=== PATIENT | female | born 1940 | race Caucasian/White ===

== ENCOUNTER 2016-07-27 14:44 | Inpatient (IN) | payer MEDICARE, BC ==
--- NOTE | ~2016-07-27 | HP ---
History And Physical [place] [id number] [facility] [place]. [address] NAME: CHILO LOPEZ : 38 STATUS : REG ER PAT#: [id number] AGE: 75 ADM/REG DATE : 07/27/16 MR#: [id number] REPORT SERV DATE: 07/27/16 DICTATED BY: INDIO CORBETT DATE: 07/27/16 REPORT STATUS : Draft TRANSCRIBED BY: MODEmerson DATE: 07/27/16 DATE OF ADMISSION: 07/27/2016 HISTORY OF PRESENT ILLNESS: The patient is a very pleasant 75-year-old female who is a resident of [facility] on [facility]. She reported that more than seven days ago she developed cough and she was feeling very weak for the last seven days and cough still continues and she is unable to sleep at night. It is nonproductive. She was having increased weakness and dehydration and that is why she presented to [facility]. She denies any chest pain. No shortness of breath. No abdominal pain. No fever. She was afebrile since her cough symptoms started. All 14-point review of systems done and all are negative except what is stated in the history of present illness. PAST MEDICAL HISTORY: Known for history of chronic ileostomy since 1969 for ulcerative colitis, now with short bowel syndrome. She told me that she comes [facility] and gets IV fluids twice a week. History of bipolar disorder, questionable history of early onset Alzheimer's dementia, anemia, osteoarthritis, chronic kidney disease, gout, cataracts, history of SIADH, mild diabetes, some hearing problems, and decreased appetite. PAST SURGICAL HISTORY: Includes ileostomy for ulcerative colitis and bilateral cataract surgery. SOCIAL HISTORY: She is a former smoker, currently does not smoke, used to smoke one pack per day. No excessive alcohol. She drinks occasionally. No recreational drug use. She is retired. She lives at the [facility]. FAMILY HISTORY: Negative for cancer. Positive for COPD and coronary artery disease. Positive for hypertension and diabetes. ALLERGIES: SHE IS ALLERGIC TO PENICILLIN AND SULFA. HOME MEDICATIONS: Include allopurinol 100 mg a day, Questran 4 g twice a day, Depakote ER 500 p.o. b.i.d., Flonase nasal spray 1 spray daily, folic acid 1 mg daily, and Xyzal 5 mg daily. She was given Levaquin starting 07/26/2016. She cannot remember for which reason, most likely for cough. Magnesium oxide 200 mg twice a day, midodrine 2.5 mg three times a day, multivitamins daily, Protonix 40 mg b.i.d., phosphorus 250 twice a day, potassium chloride 10 mEq p.o. twice a day, Seroquel 200 mg at bedtime, simvastatin 20 mg daily, sodium bicarbonate 1300 twice a day, sodium chloride 2 g p.o. b.i.d., Carafate 1 g p.o. before meals, and ferrous sulfate daily. REVIEW OF SYSTEMS: A 14-point review of systems done and negative except what is stated in the history of present illness. PHYSICAL EXAMINATION: GENERAL: This female, not in acute distress, resting quietly. VITAL SIGNS: Blood pressure 120/64, temperature 98.2, heart rate 96, respiratory rate 18, History And Physical [address] [address] NAME: CHILO LOPEZ : 38 STATUS : REG ER PAT#: [id number] AGE: 75 ADM/REG DATE : 07/27/16 MR#: [id number] REPORT SERV DATE: 07/27/16 DICTATED BY: INDIO CORBETT DATE: 07/27/16 REPORT STATUS : Draft TRANSCRIBED BY: AUSTEN DATE: 07/27/16 and oxygen saturation 95% on room air. HEENT: Head atraumatic, normocephalic. Conjunctivae clear. Pupils are equal and reactive to light and accommodation. Extraocular muscles are intact. NECK: Supple. Trachea is midline. No supraclavicular or cervical lymphadenopathy. LUNGS: Diminished breath sounds bilaterally. Decreased respiratory effort. CARDIOVASCULAR SYSTEM: Regular rate and rhythm. Point of maximal impulse not displaced. ABDOMEN: Soft, not tender to palpation in all abdominal quadrants. Ileostomy present. EXTREMITIES: No clubbing, cyanosis, or edema. SKIN: Normal color, decreased turgor. PSYCHIATRIC: Normal mood and affect. NEUROLOGIC: Awake, alert, and oriented in time, place, and person. Muscle strength is 5/5 bilaterally on upper and lower extremities. LABORATORY RESULTS: Sodium 135, potassium 4.4, chloride 97, carbon dioxide 24, BUN 29, creatinine 2.82, blood sugar is 94. Depakene level 41.5. The patient's creatinine on 07/22/2016 was 1.8 and on 07/17/2016 was 1.53, so probably baseline creatinine from 1.5 to 1.8, now it is 2.82. White count 5, hemoglobin 9.1, hematocrit 28.2, platelet count 174. Influenza B positive. Chest x-ray personally reviewed by me. Official Radiology results are pending showing chronic changes, possible COPD. I do not see any acute infiltrate. We will wait for official Radiology report. EKG showed some mild sinus tachycardia with premature atrial complexes, rate of 104, nonspecific ST-T wave changes. ASSESSMENT AND PLAN: This is a 75-year-old female with a past medical history of chronic ileostomy secondary to ulcerative colitis, history of bipolar disorder, mild diabetes, presented with: 1. Acute kidney injury on chronic kidney disease. 2. Influenza symptoms started more than seven days ago, currently having only cough. Influenza B positive. 3. Chronic ileostomy. She gets transfusion. Every two weeks, she gets IV fluid transfusions. 4. DNR status. 5. History of bipolar disorder, stable. We will admit the patient to telemetry bed for acute kidney injury on chronic kidney disease. As I dictated, her baseline creatinine is 1.8. We will start her on IV fluid hydration. 6. For her cough, we will give her Mucinex. We will check official Radiology report also, and I will check procalcitonin level. I will hold on antibiotics right now until procalcitonin comes back and also Radiology report officially will come out. 7. For diabetes, we will put her on insulin sliding scale. 8. Anemia, stable hemoglobin and hematocrit. 9. We will put her on deep venous thrombosis prophylaxis, and my partner will see this patient starting tomorrow morning, and also since her influenza started more than seven days ago, she is not a candidate for Tamiflu anymore especially with this abnormal kidney function and with her not having fever and the only symptom it is just post History And Physical [address] [place]. [address] NAME: CHILO LOPEZ : 38 STATUS : REG ER PAT#: [id number] AGE: 75 ADM/REG DATE : 07/27/16 MR#: [id number] REPORT SERV DATE: 07/27/16 DICTATED BY: INDIO CORBETT DATE: 07/27/16 REPORT STATUS : Draft TRANSCRIBED BY: AUSTEN DATE: 07/27/16 influenza cough. MG/MODL Indio Corbett M.D. / [id number] CC: Dr. Schuster
--- NOTE | ~2016-07-27 | CN ---
Consultation Report [facility] [address] [place]. [address] NAME: CHILO LOPEZ : 38 STATUS : ADM IN PAT#: [id number] AGE: 75 ADM/REG DATE : 07/27/16 MR#: [id number] REPORT SERV DATE: 07/28/16 DICTATED BY: NELI POPE DATE: 07/28/16 REPORT STATUS : Draft TRANSCRIBED BY: MODL DATE: 07/28/16 CONSULTATION DATE OF CONSULTATION: REASON FOR CONSULTATION: Acute kidney injury on chronic kidney disease. HISTORY OF PRESENT ILLNESS: This is a very pleasant 75-year-old female, who follows with Dr. Neli Pope in our office. Baseline creatinine appears to be 1.9 to 2.3 and she requires recurrent infusion of IV fluids with known history of chronic kidney disease stage 3 to stage 4, HBP, hyponatremia, diabetes mellitus type 2, ulcerative colitis with ileostomy in 1959, gout, dementia with bipolar disorder, urinary retention, cholelithiasis, and anemia. The patient states that she has recently been doing well and continues to live at an assisted living facility. Over the previous 48 hours prior to admission here, she began to feel worsening malaise and fatigue without chest pain, nausea, or vomiting and reported here rather for evaluation and was found to be positive for influenza B with acute kidney injury and baseline creatinine as listed above with most recent followup in our office on 03/27/2016 with a stable creatinine at that time. The patient is awake and alert and oriented this morning, in no acute distress. Denies current chest pain. No active nausea, vomiting, or diarrhea. PAST MEDICAL HISTORY: Positive for chronic kidney disease stage 3 to 4, baseline creatinine 1.9 to 2.3; HBP; hyponatremia; SIADH; diabetes mellitus type 2; ulcerative colitis, requiring an ileostomy in 1959 and frequent infusions with IV fluids. History is also positive for gout, dementia, bipolar disorder, urinary retention, cholelithiasis, and anemia. REVIEW OF SYSTEMS: Completed, please see HPI for pertinent details. SOCIAL HISTORY: No ETOH. No illicit drugs. No tobacco. Lives locally in assisted living with recent medical history as listed above. ALLERGIES: LISTS ALLERGIES TO PENICILLIN AND SULFA. ACTIVE MEDICATIONS: Allopurinol 100 mg p.o. daily, Questran 4 g p.o. b.i.d., Depakote 500 mg p.o. b.i.d., ferrous sulfate 300 mg p.o. daily, folic acid 600 mg p.o. daily, guaifenesin 600 mg p.o. b.i.d., heparin 5000 units via sliding scale, NovoLog sliding scale level 1, Claritin 10 mg daily, Mag-Ox 200 mg p.o. daily b.i.d., ProAmatine 2.5 mg p.o. t.i.d., Theragran tab multivitamin one daily, Protonix 40 mg p.o. a.c. b.s., phosphorus 250 mg p.o. b.i.d., potassium chloride 10 mEq p.o. b.i.d., Seroquel at 200 mg p.o. q.h.s., Zocor 20 mg daily, sodium bicarb 1300 mg daily, sodium chloride infusion rate at 100 mL an hour, and Carafate 1 g p.o. daily. She also has antiemetics, anti-pain and she is on electrolyte protocol. Consultation Report [address] [place]. [address] NAME: CHILO LOPEZ : 38 STATUS : ADM IN [facility]#: [id number] AGE: 75 ADM/REG DATE : 07/27/16 MR#: [id number] REPORT SERV DATE: 07/28/16 DICTATED BY: NELI POPE DATE: 07/28/16 REPORT STATUS : Draft TRANSCRIBED BY: AUSTEN DATE: 07/28/16 PHYSICAL EXAMINATION: VITAL SIGNS: Blood pressure 120/58, respiratory rate at 20, heart rate at 106 beats per minute, temperature 98.6. GENERAL: She is alert and oriented x3, in no acute distress. HEENT: Normocephalic and atraumatic. Normal ocular movements. No scleral icterus or conjunctival pallor is appreciated. NECK: Supple without thyromegaly. No JVD. No mass. CHEST: Shows positive S1 and S2. No rubs, no gallops. LUNGS: Diminished, but clear to auscultation throughout with normal expansion and effort bilaterally. GI: Shows positive bowel sounds in all four quadrants. No appreciable mass or tenderness. Ileostomy is present. : Deferred. EXTREMITIES: Show positive pulses. No clubbing, cyanosis, or edema. NEUROLOGIC: She appears to be grossly intact and nonfocal. She has appropriate mood and affect. SKIN: Warm dry, and intact to visualized surfaces. No rash, lesions, or ecchymosis. PERTINENT LABORATORIES AND IMAGING: Sodium 138, potassium 3.6, chloride 103, CO2 of 25, BUN 22, creatinine 2.24, reflected GFR at 20 mL/minute, glucose of 109, calcium 6.3, magnesium 1.4. Folate is pending. B12 of 168. WBC at 3.9, RBC 3.0, hemoglobin 8.3, hematocrit 25.3, platelets at 148. IMPRESSION AND PLAN: Chronic kidney disease stage 3 to stage 4. Baseline creatinine at 1.9 to 2.3, now at 2.24 which is within her baseline. The patient does have ileostomy and requires chronic infusions and has had some level of difficulty with SIADH and hyponatremia in prior admissions. Currently, her sodium is stable at 1.3. She does have electrolyte abnormalities with her magnesium at 1.4, her calcium is at 6.3 with no ionized calcium available nor albumin. Continue her IV fluids. Check her ionized calcium, treat calcium levels based off her ionized. Treat her magnesium. With previous difficulty with urinary retention, check postvoid residual and place Garcia catheter if clinically warranted. Follow closely with supportive care. The patient will likely need inpatient physical therapy evaluation. Defer B12 and folate to primary care team and modify treatment plan based on clinical presentation of the patient, laboratory results, and further consultation with Renal attending. We appreciate consultation, we are glad to follow. DICTATED BY: Kev Cleveland NP JR/AUSTEN Neli Consultation Report [address] [place] [facility] [address] NAME: CHILO LOPEZ : 38 STATUS : ADM IN PAT#: [id number] AGE: 75 ADM/REG DATE : 07/27/16 MR#: [id number] REPORT SERV DATE: 07/28/16 DICTATED BY: NELI POPE DATE: 07/28/16 REPORT STATUS : Draft TRANSCRIBED BY: SILVIANOL DATE: 07/28/16 Moris Pope / [id number] CC: Lissette Lr M.D.
--- NOTE | ~2016-07-27 | DS ---
Discharge Summary [facility] [address] [place]. [address] NAME: CHILO LOPEZ : 38 STATUS : DIS IN PAT#: [id number] AGE: 75 ADM/REG DATE : 07/27/16 MR#: [id number] REPORT SERV DATE: 08/06/16 DICTATED BY: DATE: REPORT STATUS : Draft TRANSCRIBED BY: MODL DATE: 08/05/16 ADMISSION DATE: 07/27/2016 DISCHARGE DATE: 08/05/2016 The [facility], attending Shantanu Dean M.D. CONSULTANTS: Chester Everett M.D., nephrology-signed off. DISCHARGE DIAGNOSES: 1. Influenza B. 2. Status post bilateral bacterial pneumonia with associated pleural effusion. 3. Status post acute kidney injury on chronic kidney disease, stage 3-4. Baseline creatinine 1.8. 4. Ulcerative colitis with history of colectomy, ileostomy, small bowel syndrome. History of high output ostomy. 5. Diabetes. 6. Chronic anemia. 7. History of gout. 8. History of hyponatremia due to SIADH. 9. History of dementia. 10.History of bipolar disorder. 11.History of urinary retention. 12.History of cholelithiasis. 13.History of anemia. 14.B12 deficiency-initiated on replacement. IMAGING AND DIAGNOSTICS: 1. Portable chest x-ray, July 27 shows no acute process. 2. Portable chest x-ray, July 29, diffuse bilateral interstitial infiltrates. 3. CT chest without contrast on July 30, bilateral pleural fluid and adjacent bibasilar atelectasis. Scattered areas of minimal infiltrate and consolidation within both lungs, likely pneumonia. Minimal pericardial fluid. Calcific atherosclerosis with involvement of the coronary arteries. PERTINENT LABS: Creatinine value at admission 2.82, 1.84 at discharge. Liver enzymes normal. B12 of 168. Hemoglobin A1c 5.7. Flu swab, influenza B positive. BNP values between 36 and 325. BRIEF HISTORY: For full details, please see the previously dictated history of present illness by Monisha Cali. This is a 75-year-old female, who lives at [facility] [address] (assisted living). Seven days prior to admission, she developed a cough and weakness. She was noted to have increasing weakness and poor oral intake leading to dehydration and presented to the [facility] Emergency Department. Her creatinine was found to be elevated and her flu swab was positive for influenza B. She was admitted to the Hospitalist Service for further management. Discharge Summary [place] [address] [place]. [address] NAME: CHILO LOPEZ : 38 STATUS : DIS IN PAT#: [id number] AGE: 75 ADM/REG DATE : 07/27/16 MR#: [id number] REPORT SERV DATE: 08/06/16 DICTATED BY: DATE: REPORT STATUS : Draft TRANSCRIBED BY: MODL DATE: 08/05/16 HOSPITAL COURSE: For full details, please see interim discharge summary by Dr. Shantanu Dean on August 04. The patient was treated with Tamiflu for her influenza B, and received a full five days of treatment. Subsequent imaging revealed bilateral bacterial pneumonia and she was treated with Levaquin for seven days total. She was found to have acute kidney injury with an admission creatinine of 2.8 on prior baseline of 1.8. Nephrology followed with conservative management. Her creatinine was brought down to baseline value of 1.8 . Despite medical improvement and resolution of influenza B, bacterial pneumonia, and acute kidney injury, patient remained very physically weak and deconditioned. She requested to be discharged to [facility]. No beds were available on the 04 of August, and she was held overnight until the 05 of August at which 0.1 bed is available and request has been made to [facility] to [facility]. DISCHARGE DISPOSITION: Patient will be discharged to [facility] for additional rehabilitation before she is able to return to assisted living. She has no specific activity restrictions, and her discharge diet should be a diabetic diet for prior comorbidities. DISCHARGE MEDICATIONS: Include: 1. Allopurinol 100 mg p.o. daily. 2. Questran 4 g p.o. twice a day. 3. Depakote 500 mg p.o. twice a day. 4. Flonase one spray in each nostril daily. 5. B12 1000 mcg p.o. daily. 6. Guaifenesin 600 mg p.o. three times a day as needed for cough and congestion. 7. Xyzal 5 mg p.o. at bedtime. 8. Magnesium oxide 200 mg p.o. twice a day. 9. Protonix 40 mg p.o. twice a day. 10.Potassium 10 mEq p.o. twice a day. 11.Seroquel 200 mg p.o. at bedtime-prescription provided. 12.Zocor 20 mg p.o. at bedtime. 13.Sodium bicarbonate 1300 mg p.o. twice a day. 14.Sodium chloride 2 g p.o. twice a day. 15.Sucralfate 1 g p.o. q.a.c. t.i.d. and q.h.s. 16.ProAmatine 2.5 mg p.o. three times a day. 17.DuoNeb 3 mL inhaled every four hours as needed for shortness of breath. 18.Iron sulfate 324 mg p.o. daily. 19.Folic acid 1 mg p.o. daily. 20.Multivitamin with minerals one tablet p.o. daily. 21.Phosphate one tablet p.o. twice a day. 30 minutes was spent in completion of the discharge summary. HANS/AUSTEN Wesley Squires Discharge Summary [address] [address] NAME: CHILO LOPEZ : 38 STATUS : DIS IN PAT#: [id number] AGE: 75 ADM/REG DATE : 07/27/16 MR#: [id number] REPORT SERV DATE: 08/06/16 DICTATED BY: DATE: REPORT STATUS : Draft TRANSCRIBED BY: AUSTEN DATE: 08/05/16 Moris Bunch / [id number] CC: Moris Patel MD
--- NOTE | ~2016-07-27 | IDS ---
Interim Discharge Summary [facility] [address] [place]. [address] NAME: CHILO LOPEZ : 38 STATUS : ADM IN [facility]#: [id number] AGE: 75 ADM/REG DATE : 07/27/16 MR#: [id number] REPORT SERV DATE: 08/04/16 DICTATED BY: MUNIR AYALA DATE: 08/04/16 REPORT STATUS : Draft TRANSCRIBED BY: MODL DATE: 08/04/16 ADMISSION DATE: 07/27/2016 DISCHARGE DATE: CONSULTING PHYSICIAN: Chester Everett M.D. for Renal and they signed off. INTERIM DIAGNOSES: 1. Flu B. 2. Status post bilateral pneumonia with pleural effusion. 3. Status post acute kidney injury, on CKD 3 to 4. 4. Ulcerative colitis with history of colectomy, ileostomy, and small bowel syndrome. 5. Diabetes. 6. Chronic anemia. 7. History of gout. DIAGNOSTIC EXAM: Chest x-ray showing no acute process or no change on admission. Repeat chest x-ray showing diffuse bilateral interstitial edema or infiltrates. CAT scan of the chest showing bilateral pleural fluid and adjacent basilar atelectasis. Scattered areas of minimal infiltrate and consolidation within both lungs, likely pneumonia. Follow up is recommended to confirm clearance since other underlying abnormalities could be obscured. Minimal pericardial fluid, calcific atherosclerosis including involvement of coronary arteries. HOSPITAL COURSE: Please refer to the H and P done by Dr. Cali dated on 07/27/2016. Briefly, this is a 75-year-old female who comes in for weakness. The patient has a history of ileostomy, short bowel syndrome and has chronic kidney disease, has been following up with the Renal people and getting infusion twice a week. I suspect that this is more of electrolytes and fluids as she has been losing a lot from her ileostomy chronically. The patient started having weakness, cough for about one week, and finally presented to the hospital. She was diagnosed to have a flu B and was started on Tamiflu, but later on developed bilateral pneumonia. She was placed on Levaquin. The patient was also found to be in KARMA with a creatinine of 2.82. We got Renal involved and with conservative management, we were able to bring it down to her baseline of 1.84. Renal have signed off and the patient was doing well. However, she remains weak. She really wanted to go to rehab and we are working with [facility] to accept her; however, they do not have a bed today, so once we have a bed available, the patient will be transferred there. She will be followed up by my partner starting tomorrow. WALTER/AUSTEN Munir Ayala M.D. / [id number] Interim Discharge Summary [address] [address] NAME: CHILO LOPEZ : 38 STATUS : ADM IN [facility]#: [id number] AGE: 75 ADM/REG DATE : 07/27/16 MR#: [id number] REPORT SERV DATE: 08/04/16 DICTATED BY: MUNIR AYALA DATE: 08/04/16 REPORT STATUS : Draft TRANSCRIBED BY: AUSTEN DATE: 08/04/16 CC: Moris Holliday MD
[~2016-07-27 14:44] MED LIST: 8 HOUR650 MG PO; ACIDOPHILU1 PO; ARTHRITIS PAIN REL PO; AURALGAN OT; CALMOSEPTINE O2.5 OZ TOP; CENTRUM PO; CIP5 PO; CLEOCIN300 MG PO; DEPAKOT500 PO; DEPAKOTEER PO; DITROXL5 PO; ESTRACE VAG0.1 MG/GM V; FERRETTS325 MG PO; FERROUS SULF324 MG PO; FERROUS SULF325 M1 PO; FERROUS SULFATE 324 PO; FESO4 PO; FLONASE NAS; FOLIC PO; FORTAMET500 MG PO; GLUCPH PO; IRON325 MG PO; JANUVIA100 MG PO; KDUR10 PO; KLOR-CON 1010 MEQ PO; LEVAQUIN750 MG PO; LOP25 PO; MACROBID PO; MAGOX4; MAGOX4 PO; MAPAP PO; MOMUD PO; MULTIVIT/MIN PO; NORCO1 TA1 PO; OXYBUTYNIN CL PO; PERIDEX PO; PHOSPHA 250 OR; PHOSPHA 250 PO; PR25 PO; PREVALITE4 G1 PO; PROAM25 PO; PROBIOTIC PO; PROTONIX PO; QUESLITE PO; QUESTRAN4 GM PO; QUETIAPINE PO; RISAMINE OINTMENT TOP; SB325; SENSIPAR30 M1 PO; SEROQUEL XR200 MG PO; SEROQUEL200 MG PO; SOD CHLORIDE1 G1 PO; SODBICAR10 PO; SODCLTAB; SODCLTAB PO; SUCR PO; T PO; T3 PO; THERA M PLUS PO; THERA-M PO; THERGRANM; THERGRANM PO; TYLENOL ARTH650 MG PO; ULTRAM50 PO; XYZAL5 MG PO; Z100 PO; ZOCOR20 PO; ZOFRAN ODT4 MG PO; ZOFRAN4 PO
[2016-07-27 15:05] LABS: BASOPHILS 0.2 %; BASOPHILS ABSOLUTE 0.01 10/3/uL (0.0-0.16); EOSINOPHILS 0 %; HEMOGLOBIN 9.1 g/dL (12.0-16.0); IMMATURE GRANULOCYTES 0.2 %; IMMATURE GRANULOCYTES ABSOLUTE 0.01 10/3/uL (0.0-0.11); LYMPHOCYTES 22.5 %; LYMPHOCYTES ABSOLUTE 1.13 10/3/uL (0.67-4.30); MEAN CORPUS HGB CONC 32.3 g/dL (32.0-36.0); MEAN CORPUSCULAR HEMOGLOB 27.7 pg (26.0-34.0); MEAN PLATELET VOLUME 9.2 fL (9.2-13.0); MONOCYTES 10.5 %; MONOCYTES ABSOLUTE 0.53 10/3/uL (0.21-1.20); NEUTROPHILS 66.6 %; NEUTROPHILS ABSOLUTE 3.35 10/3/uL (2.02-8.40); PLATELET COUNT 174 10/3/uL (150-400); RBC DISTRIBUTION WIDTH 16.5 % (12.0-16.0); RED CELL COUNT 3.29 10/6/uL (4.0-5.6)
[2016-07-27 15:08] LABS: HEMATOCRIT 28.2 % (36.0-48.0); MANUAL DIFF NO %; MEAN CORPUSCULAR VOLUME 85.7 fL (80-100)
[2016-07-27 15:22] LABS: A/G RATIO 0.5 (0.7-1.9); ALBUMIN 2.5 G/DL (3.5-5.0); BUN (BLOOD UREA NITROGEN) 29 MG/DL (6-23); CHLORIDE, SERUM 97 MMOL/L (96-112); CO2 (CARBON DIOXIDE) 24 MMOL/L (24-34); CREATININE 2.82 MG/DL (0.55-1.02); DEPAKENE (VALPROIC ACID) 41.5 MCG/ML (50.0-100.0); GFR AFRICAN AMERICAN 18 ML/MIN (>=60); GFR NON AFRICAN AMERICAN 16 ML/MIN (>=60); GLOBULIN 5.2 G/DL (2.5-4.1); GLUCOSE, SERUM 94 MG/DL (60-99); POTASSIUM, SERUM 4.4 MMOL/L (3.5-5.3); SGOT(AST) 18 U/L (5-40); SGPT(ALT) 8 U/L (5-65); SODIUM, SERUM 135 MMOL/L (135-148); TOTAL BILIRUBIN 0.2 MG/DL (0-1.2); TOTAL PROTEIN 7.7 G/DL (6.0-8.5)
[2016-07-27 15:23] LABS: ALKALINE PHOSPHATASE 215 U/L (45-117); CALCIUM, SERUM 6.6 MG/DL (8.5-10.4)
[2016-07-27 15:28] LABS: INFLUENZA A SCREEN NEGATIVE (NEGATIVE)
[2016-07-27 15:31] LABS: INFLUENZA B SCREEN POSITIVE (NEGATIVE)
[2016-07-27 23:11] LABS: PROCALCITONIN 0.21 ng/mL (<0.5)
[2016-07-28 00:03] LABS: FOLATE > 100.0 NG/ML (>5.2)
[2016-07-28 08:58] LABS: BASOPHILS 0.3 %; BASOPHILS ABSOLUTE 0.01 10/3/uL (0.0-0.16); EOSINOPHILS 0.3 %; EOSINOPHILS ABSOLUTE 0.01 10/3/uL (0.0-0.53); HEMATOCRIT 25.5 % (36.0-48.0); HEMOGLOBIN 8.3 g/dL (12.0-16.0); LYMPHOCYTES 43.7 %; MEAN CORPUS HGB CONC 32.5 g/dL (32.0-36.0); MEAN CORPUSCULAR HEMOGLOB 27.7 pg (26.0-34.0); MEAN PLATELET VOLUME 9.6 fL (9.2-13.0); MONOCYTES 8.5 %; MONOCYTES ABSOLUTE 0.33 10/3/uL (0.21-1.20); NEUTROPHILS 47.2 %; NEUTROPHILS ABSOLUTE 1.84 10/3/uL (2.02-8.40); PLATELET COUNT 148 10/3/uL (150-400); RBC DISTRIBUTION WIDTH 16.5 % (12.0-16.0); WHITE BLOOD CELLS 3.9 10/3/uL (4.5-10.5)
[2016-07-28 08:59] LABS: MANUAL DIFF NO %
[2016-07-28 09:57] LABS: BUN (BLOOD UREA NITROGEN) 22 MG/DL (6-23); CALCIUM, SERUM 6.3 MG/DL (8.5-10.4); CHLORIDE, SERUM 103 MMOL/L (96-112); CO2 (CARBON DIOXIDE) 25 MMOL/L (24-34); CREATININE 2.24 MG/DL (0.55-1.02); GFR AFRICAN AMERICAN 24 ML/MIN (>=60); GFR NON AFRICAN AMERICAN 20 ML/MIN (>=60); GLUCOSE, SERUM 109 MG/DL (60-99); POTASSIUM, SERUM 3.6 MMOL/L (3.5-5.3); SODIUM, SERUM 138 MMOL/L (135-148)
[2016-07-28 15:10] LABS: FOLATE > 100.0 NG/ML (>5.2)
[2016-07-29 05:14] LABS: ASCORBIC ACID (UR NOT ORDER) 20 (NEG); BILIRUBIN, URINE NEGATIVE (NEG); KETONE, URINE NEGATIVE (NEG); LEUKOCYTE ESTERASE(NOT OR LARGE (NEG); WBC (NOT ORDERED) (RFLEX) 27 (0-5)
[2016-07-29 06:14] LABS: BASOPHILS 0.3 %; BASOPHILS ABSOLUTE 0.01 10/3/uL (0.0-0.16); EOSINOPHILS 0 %; HEMATOCRIT 23.8 % (36.0-48.0); HEMOGLOBIN 7.6 g/dL (12.0-16.0); LYMPHOCYTES 35.2 %; LYMPHOCYTES ABSOLUTE 1.25 10/3/uL (0.67-4.30); MANUAL DIFF NO %; MEAN CORPUS HGB CONC 31.9 g/dL (32.0-36.0); MEAN CORPUSCULAR VOLUME 84.7 fL (80-100); MEAN PLATELET VOLUME 9.4 fL (9.2-13.0); MONOCYTES 8.7 %; MONOCYTES ABSOLUTE 0.31 10/3/uL (0.21-1.20); NEUTROPHILS 55.8 %; NEUTROPHILS ABSOLUTE 1.98 10/3/uL (2.02-8.40); PLATELET COUNT 130 10/3/uL (150-400); RBC DISTRIBUTION WIDTH 16.3 % (12.0-16.0); RED CELL COUNT 2.81 10/6/uL (4.0-5.6); WHITE BLOOD CELLS 3.6 10/3/uL (4.5-10.5)
[2016-07-29 06:32] LABS: ALBUMIN 2.1 G/DL (3.5-5.0); CHLORIDE, SERUM 106 MMOL/L (96-112); CO2 (CARBON DIOXIDE) 25 MMOL/L (24-34); CREATININE 1.83 MG/DL (0.55-1.02); GFR AFRICAN AMERICAN 30 ML/MIN (>=60); GFR NON AFRICAN AMERICAN 26 ML/MIN (>=60); GLUCOSE, SERUM 95 MG/DL (60-99); POTASSIUM, SERUM 3.8 MMOL/L (3.5-5.3); SODIUM, SERUM 141 MMOL/L (135-148)
[2016-07-29 06:33] LABS: BUN (BLOOD UREA NITROGEN) 17 MG/DL (6-23); CALCIUM, SERUM 6.5 MG/DL (8.5-10.4); PHOSPHORUS, SERUM 2.8 MG/DL (2.5-4.5)
[2016-07-30 07:31] LABS: BASOPHILS 0 %; EOSINOPHILS 0.7 %; EOSINOPHILS ABSOLUTE 0.03 10/3/uL (0.0-0.53); IMMATURE GRANULOCYTES 0.2 %; IMMATURE GRANULOCYTES ABSOLUTE 0.01 10/3/uL (0.0-0.11); LYMPHOCYTES 28.4 %; LYMPHOCYTES ABSOLUTE 1.22 10/3/uL (0.67-4.30); MANUAL DIFF NO %; MEAN CORPUSCULAR HEMOGLOB 27.4 pg (26.0-34.0); MEAN CORPUSCULAR VOLUME 85.6 fL (80-100); MEAN PLATELET VOLUME 9.2 fL (9.2-13.0); MONOCYTES 7.7 %; MONOCYTES ABSOLUTE 0.33 10/3/uL (0.21-1.20); PLATELET COUNT 141 10/3/uL (150-400); RBC DISTRIBUTION WIDTH 16.4 % (12.0-16.0); RED CELL COUNT 2.92 10/6/uL (4.0-5.6); WHITE BLOOD CELLS 4.3 10/3/uL (4.5-10.5)
[2016-07-30 07:55] LABS: CHLORIDE, SERUM 107 MMOL/L (96-112); CO2 (CARBON DIOXIDE) 26 MMOL/L (24-34); CREATININE 1.62 MG/DL (0.55-1.02); FREE T4 0.92 NG/DL (0.76-1.46); GFR AFRICAN AMERICAN 35 ML/MIN (>=60); GFR NON AFRICAN AMERICAN 30 ML/MIN (>=60); GLUCOSE, SERUM 89 MG/DL (60-99); POTASSIUM, SERUM 3.9 MMOL/L (3.5-5.3); SODIUM, SERUM 143 MMOL/L (135-148)
[2016-07-30 07:56] LABS: BUN (BLOOD UREA NITROGEN) 12 MG/DL (6-23); CALCIUM, SERUM 6.5 MG/DL (8.5-10.4)
[2016-07-31 10:24] LABS: BUN (BLOOD UREA NITROGEN) 11 MG/DL (6-23); CALCIUM, SERUM 7.1 MG/DL (8.5-10.4); CHLORIDE, SERUM 103 MMOL/L (96-112); CO2 (CARBON DIOXIDE) 25 MMOL/L (24-34); CREATININE 1.85 MG/DL (0.55-1.02); GFR AFRICAN AMERICAN 30 ML/MIN (>=60); GFR NON AFRICAN AMERICAN 26 ML/MIN (>=60); GLUCOSE, SERUM 155 MG/DL (60-99); POTASSIUM, SERUM 4.6 MMOL/L (3.5-5.3); SODIUM, SERUM 140 MMOL/L (135-148)
[2016-08-01 06:05] LABS: BASOPHILS 0 %; EOSINOPHILS 0.5 %; EOSINOPHILS ABSOLUTE 0.03 10/3/uL (0.0-0.53); HEMATOCRIT 25.9 % (36.0-48.0); HEMOGLOBIN 8.2 g/dL (12.0-16.0); IMMATURE GRANULOCYTES 0.2 %; IMMATURE GRANULOCYTES ABSOLUTE 0.01 10/3/uL (0.0-0.11); LYMPHOCYTES 17.1 %; LYMPHOCYTES ABSOLUTE 0.98 10/3/uL (0.67-4.30); MEAN CORPUS HGB CONC 31.7 g/dL (32.0-36.0); MEAN CORPUSCULAR HEMOGLOB 27.2 pg (26.0-34.0); MEAN CORPUSCULAR VOLUME 85.8 fL (80-100); MEAN PLATELET VOLUME 9.1 fL (9.2-13.0); MONOCYTES 10.1 %; MONOCYTES ABSOLUTE 0.58 10/3/uL (0.21-1.20); NEUTROPHILS 72.1 %; NEUTROPHILS ABSOLUTE 4.12 10/3/uL (2.02-8.40); PLATELET COUNT 171 10/3/uL (150-400); RBC DISTRIBUTION WIDTH 16.4 % (12.0-16.0); RED CELL COUNT 3.02 10/6/uL (4.0-5.6); WHITE BLOOD CELLS 5.7 10/3/uL (4.5-10.5)
[2016-08-01 06:08] LABS: MANUAL DIFF NO %
[2016-08-01 06:14] LABS: BUN (BLOOD UREA NITROGEN) 13 MG/DL (6-23); CALCIUM, SERUM 7.2 MG/DL (8.5-10.4); CHLORIDE, SERUM 104 MMOL/L (96-112); CO2 (CARBON DIOXIDE) 28 MMOL/L (24-34); CREATININE 1.92 MG/DL (0.55-1.02); GFR AFRICAN AMERICAN 29 ML/MIN (>=60); GFR NON AFRICAN AMERICAN 25 ML/MIN (>=60); PHOSPHORUS, SERUM 2.7 MG/DL (2.5-4.5); POTASSIUM, SERUM 4.2 MMOL/L (3.5-5.3); SODIUM, SERUM 142 MMOL/L (135-148)
[2016-08-01 06:16] LABS: GLUCOSE, SERUM 87 MG/DL (60-99)
[2016-08-02 06:15] LABS: BUN (BLOOD UREA NITROGEN) 14 MG/DL (6-23); CALCIUM, SERUM 7.7 MG/DL (8.5-10.4); CHLORIDE, SERUM 106 MMOL/L (96-112); CO2 (CARBON DIOXIDE) 26 MMOL/L (24-34); CREATININE 1.84 MG/DL (0.55-1.02); GFR AFRICAN AMERICAN 30 ML/MIN (>=60); GFR NON AFRICAN AMERICAN 26 ML/MIN (>=60); GLUCOSE, SERUM 80 MG/DL (60-99); POTASSIUM, SERUM 4.2 MMOL/L (3.5-5.3); SODIUM, SERUM 142 MMOL/L (135-148)
== END 2016-08-05 15:35 | DRG 682 ==
LOC: ER 14:44 → 5SO 18:22
PROVIDERS: Hospitalist; Internal Medicine; Internal Medicine Nephrology
DX: N17.9 Acute kidney failure, unspecified (principal); J11.08 Influenza due to unidentified influenza virus with specified pneumonia; J15.9 Unspecified bacterial pneumonia; J90 Pleural effusion, not elsewhere classified; K91.2 Postsurgical malabsorption, not elsewhere classified; E11.22 Type 2 diabetes mellitus with diabetic chronic kidney disease; F03.90 Unspecified dementia, unspecified severity, without behavioral disturbance, psychotic disturbance, mood disturbance, and anxiety; K51.90 Ulcerative colitis, unspecified, without complications; Z66 Do not resuscitate; Z93.2 Ileostomy status; F31.9 Bipolar disorder, unspecified; Z87.891 Personal history of nicotine dependence; Z98.890 Other specified postprocedural states; Z88.0 Allergy status to penicillin; Z88.2 Allergy status to sulfonamides; Z79.899 Other long term (current) drug therapy; N18.3 Chronic kidney disease, stage 3 (moderate); M10.9 Gout, unspecified; D63.1 Anemia in chronic kidney disease
CPT/HCPCS: 71010; 71250; 80048; 80053; 80069; 80164; 81001; 82272; 82330; 82607; 82746; 82962; 83036; 83735; 83880; 84145; 84439; 84443; 84550; 85025; 87040; 87070; 87086; 87205; 87804; 93005; 94640; 94667; 97110-GP; 97116-GP; 97162-GP; 99285; A9270-GY; G8978-CL-GP; G8979-CJ-GP